=== PATIENT | female | born 1990 | race Caucasian/White ===

== ENCOUNTER 2022-03-23 06:02 | Emergency (ER) | payer OTHER ==
[~2022-03-23] VITALS: Ht 165.1 cm; Wt 68.0 kg
[~2022-03-23 06:02] MED LIST: IRON1TAB4 PO
[2022-03-23] MEDS ORDERED: CLINDAMYCIN HC300 MG PO (09:15)
[2022-03-23] MEDS ORDERED: INTESTINEX680 M1 PO (09:15)
[2022-03-23] MEDS ORDERED: SKELAGESIC PO (09:15)
== END 2022-03-23 09:36 ==
LOC: ER 06:02
DX: J03.90 Acute tonsillitis, unspecified (principal); Z20.822 Contact with and (suspected) exposure to COVID-19

== ENCOUNTER 2023-01-27 07:07 | Inpatient (IN) | payer OTHER ==
[~2023-01-27] VITALS: Ht 165.1 cm; Wt 69.9 kg
[~2023-01-27 07:07] MED LIST changes: +CLINDAMYCIN HC300 MG PO; +INTESTINEX680 M1 PO; +SKELAGESIC PO
[2023-01-27 09:26] LABS: URINE APPEARANCE Clear; URINE BILIRRUBIN Negative (NEGATIVE); URINE BLOOD Negative; URINE COLOR Yellow; URINE GLUCOSE Negative (NEGATIVE); URINE LEUKOCYTE Small; URINE NITRATE Negative; URINE PROTEIN Negative (NEGATIVE); URINE UROBILINOGEN 0.2 E.U./dl
[2023-01-27 09:34] LABS: URINE BACTERIA 667.7 uL (0.0-1933); URINE EPITHELIAL CELLS 44.8 uL (0.0-38.8); URINE RBC 2.2 uL (0.0-20.8)
[2023-01-27 09:49] LABS: HEMATOCRIT 37.5 % (36.0-45.00); HEMOGLOBIN 12.7 g/dL (12.0-15.00); MEAN CELL VOLUME 91.1 fL (80.00-100.00); MEAN CORPUSCULAR HEMOGLOBIN 30.8 pg (27.00-32.0); MEAN CORPUSCULAR HGB CONC 33.8 g/dl (32.0-36.0); PLATELET COUNT 147 K/uL (150-450); RED BLOOD COUNT 4.12 M/uL (4.00-6.00); RED CELL DISTRIBUTION WIDTH 13.7 % (11.5-14.5)
[2023-01-27 10:01] LABS: CALCIUM 9.3 mg/dL (8.5-10.1); CREATININE SERUM 0.62 mg/dL (0.55-1.02); GFR 110.85; POTASSIUM 3.76 mEq/L (3.5-5.1)
[2023-01-27 16:07] LABS: INR 1.16; PARTIAL THROMBOPLASTIN TIME 33.8 SECONDS (22.0-34.0)
[2023-01-28 06:25] LABS: HEMATOCRIT 31.5 % (36.0-45.00); HEMOGLOBIN 10.5 g/dL (12.0-15.00); MEAN CELL VOLUME 92.5 fL (80.00-100.00); MEAN CORPUSCULAR HEMOGLOBIN 30.8 pg (27.00-32.0); MEAN CORPUSCULAR HGB CONC 33.3 g/dl (32.0-36.0); PLATELET COUNT 123 K/uL (150-450); RED BLOOD COUNT 3.41 M/uL (4.00-6.00); RED CELL DISTRIBUTION WIDTH 13.2 % (11.5-14.5)
[2023-01-28 06:37] LABS: CALCIUM 7.7 mg/dL (8.5-10.1); CREATININE SERUM 0.59 mg/dL (0.55-1.02); GFR 117.38; POTASSIUM 3.5 mEq/L (3.5-5.1)
== END 2023-01-28 13:36 | disposition home or self-care (01) | DRG 399 ==
LOC: ER 07:07 → SEC-K 17:35 → SURG 18:54
PROVIDERS: Emergency Medicine; Surgery; ADMIT Internal Medicine; ATTEND Internal Medicine
PROC: 0WQF4ZZ Repair Abdominal Wall, Percutaneous Endoscopic Approach (ICD-10-PCS; 2023-01-27)
PROC: BW21YZZ Computerized Tomography (CT Scan) of Abdomen and Pelvis using Other Contrast (ICD-10-PCS; 2023-01-27)
PROC: 0DTJ4ZZ Resection of Appendix, Percutaneous Endoscopic Approach (ICD-10-PCS; principal; 2023-01-27 18:00)
DX: K35.890 Other acute appendicitis without perforation or gangrene (principal); K43.9 Ventral hernia without obstruction or gangrene; Z20.822 Contact with and (suspected) exposure to COVID-19

== ENCOUNTER → 2024-05-04 | Emergency (ER) | payer OTHER ==
[~2024-05-04] VITALS: Ht 165.1 cm; Wt 65.8 kg
[~2024-05-04] MED LIST changes: +ACETAMINOPHEN 500 MG GEL..CAP PO ONE; +BENZONATATE100 MG PO; +IPRATROPIUM/ALBUTEROL SULFATE 3 ML AMPUL.NEB IH ONE; +PEPCID AC20 MG PO; +SINGULAIR10 MG PO; +ZITHROMAX200 MG PO
[2024-05-04 10:57] LABS: HEMATOCRIT 37.2 % (36.0-45.00); MEAN CELL VOLUME 93.4 fL (80.00-100.00); MEAN CORPUSCULAR HEMOGLOBIN 32.6 pg (27.00-32.0); PLATELET COUNT 154 K/uL (150-450); RED BLOOD COUNT 3.98 M/uL (4.00-6.00); RED CELL DISTRIBUTION WIDTH 13.3 % (11.5-14.5)
[2024-05-04 11:54] LABS: CALCIUM 9.1 mg/dL (8.5-10.1); CREATININE SERUM 0.74 mg/dL (0.55-1.02); GFR 89.84; POTASSIUM 4.09 mEq/L (3.5-5.1)
== END | disposition home or self-care (01) ==
LOC: ER 07:44
PROVIDERS: General Practice
DX: B34.9 Viral infection, unspecified (principal); R06.2 Wheezing; Z20.822 Contact with and (suspected) exposure to COVID-19; Z88.8 Allergy status to other drugs, medicaments and biological substances; Z88.6 Allergy status to analgesic agent